=== PATIENT | female | born 1995 | race Asian ===

== ENCOUNTER 2021-05-03 14:38 | Inpatient (IN) ==
--- NOTE | 2021-05-03 15:09 | Emergency Department Note ---
Impression & Plan Mood disorder, Suicidal ideations ED Provider Note NAME: BRANDEN VOSS AGE: 26 SEX: F : 1995 ARRIVES VIA: [employer] INFORMANT: Patient ED PROVIDER(S): Diego Noble DO CHIEF COMPLAINT: Suicidal HPI: Patient is a 26-year-old female with a past medical history of depression who is referred over from [facility] for suicidal ideations with a plan to run in [place] traffic or to hang herself. She admits to hearing auditory hallucinations with negative statements and telling her to kill her self. She denies any visual hallucinations. No headache or change in vision. No chest pain or shortness of breath. No nausea, vomiting, or diarrhea. No other ex acerbating or remitting factors. She is agreeable to come in. She has been taking her medications which include Effexor and Abilify as well as trazodone. ROS: See above HPI for pertinent positives & negatives. A total of 10 systems reviewed and were otherwise negative. PAST MEDICAL HISTORY:See Below PAST SURGICAL HISTORY:See Below FAMILY HISTORY:See Below SOCIAL HISTORY:See Below HOME MEDICATIONS:See Below ALLERGIES:See Below VITALS:See Below PHYSICAL EXAMINATION: GENERAL: Sitting up in bed, alert, well appearing, well nourished, no distress, non-toxic EYE EXAM: normal conjunctiva. OROPHARYNX: no exudate, no erythema, lips, buccal mucosa, and tongue normal and mucous membranes are moist NECK: supple, no nuchal rigidity, no adenopathy, non-tender LUNGS: Clear to auscultation. Normal chest wall mechanics HEART: no murmurs, S1 normal and S2 normal ABDOMEN: abdomen soft, non-tender, normo-active bowel sounds, no masses, no rebound or guarding. UPPER EXTREMITIES: upper extremities are grossly normal. LOWER EXTREMITIES: No pitting edema. NEURO EXAM: Normal sensorium, cranial nerves II-XII grossly intact, normal speech, no gross weakness of arms, no gross weakness of legs. PSYCH: Admits to suicidal ideations with a plan and auditory hallucinations MEDICAL DECISION MAKING: Patient is a 26-year-old female who presents ER for suicidal ideations with Mult iple plans. She was referred [facility].Labs were obtained and showed no significant leukocytosis. There was mild anemia.BMP along with LFTs bilirubin and TSH was unremarkable. UA was clean. was negative. Tox was clean. Alcohol was negative. Patient was Covid negative. Patient was signed out Dr. Boyle after 302 was signed as patient did not want to come in. Awaiting placement. Observation Status: Indication:Suicidal ideations with a plan Patient with No pertinent family history, was seen first at 1448 hrs and was necessary in order to determine Medical stability and avoid unnecessary admission. Upon reevaluation, 5 hours of observation revealed that the patient should be Admitted to a psychiatric facility. Disposition date and time 1929 on 05/03/2021 patient was signed out Dr. Boyle at the change of shift awaiting placement. Triage Nursing notes reviewed. Limited review of prior medical records performed Vital Signs: reviewed and remarkable for no significant abnormalities Differential diagnosis: Mood disorder, infection, hypoglycemia, electrolyte abnormalities, cardiac sources, intracerebral event, toxicologic, trauma, neurologic, as well as other pathologies. ER treatment provided: See below Diagnostics interpreted by me: ECG: none Laboratory studies: As stated above and show below. Imaging studies: See below Consultation(s): none Procedures: none Critical Care: None Past Med/Surg History Social History Smoking Status: Never smoker Feels Safe at Home: Yes and No Allergies Allergies Allergy/AdvReac Type Severity Reaction Status Date / Time No Known Allergies Allergy Unverified 05/03/21 15:22 Home Meds Home Medications Medication Instructions Recorded Confirmed aripiprazole 10 mg tablet (Abilify) 10 mg PO DAILY 05/03/21 05/03/21 mexiletine 150 mg capsule 150 mg PO DAILY 05/03/21 05/03/21 propranolol 10 mg tablet 10 mg PO BID 05/03/21 05/03/21 venlafaxine 75 mg tablet 75 mg PO BID 05/03/21 05/03/21 Results & Data (ED) Vital Signs Vital Signs - 24 hr 05/03/21 14:51 Temperature 36.7 C Temperature Source Oral Pulse Rate 67 Respiratory Rate 20 Blood Pressure 120/77 Blood Pressure Mean 91 Blood Pressure Position Sitting Pulse Oximetry 100 Oxygen Delivery Method Room Air Sepsis Recent Fever Within 48 Hours No Sepsis New/Unexplained Change in Mental Status N/A Sepsis Action Taken by Nursing No Action Required Laboratory Data Result diagrams: 05/03/21 15:16 05/03/21 15:16 Lab Results 05/03/21 05/03/21 05/03/21 Range/Units 14:50 14:50 14:50 WBC (4.8-10.8) K/uL RBC (4.2-5.4) M/uL Hgb (12.0-16.0) g/dL Hct (37-47) % MCV (80-100) fL MCH (25-34) pg MCHC (32-36) g/dL RDW Std Deviation (36.4-46.3) fL RDW Coeff of Cruz (11.5-14.5) % Plt Count (130-400) K/uL MPV (7.4-10.4) fL Immature Gran % (Auto) % Neut % (Auto) % Lymph % (Auto) % [place] % (Auto) % Eos % (Auto) % Baso % (Auto) % Neut # (Auto) (1.4-6.5) K/uL Lymph # (Auto) (1.2-3.4) K/uL [place] # (Auto) (0.11-0.59) K/uL Eos # (Auto) (0-0.5) K/uL Baso # (Auto) (0-0.2) K/uL Immature Gran # (Auto) (0.00-0.02) K/uL Polychromasia Poikilocytosis Sodium (136-145) mmol/L Potassium (3.5-5.1) mmol/L Chloride (98-107) mmol/L Carbon Dioxide (21-32) mmol/L Anion Gap (3-11) BUN (7-18) mg/dl Creatinine (0.6-1.2) mg/dl Est Cr Clr Drug Dosing ml/min Est GFR ( Amer) ml/min Est GFR (Non-Af Amer) ml/min BUN/Creatinine Ratio (10-20) Glucose (70-99) mg/dl Calcium (8.5-10.1) mg/dl Total Bilirubin (0.2-1) mg/dl AST (15-37) U/L ALT (12-78) U/L Alkaline Phosphatase (45-117) U/L Total Protein (6.4-8.2) gm/dl Albumin (3.4-5.0) gm/dl Globulin (2.5-4.0) gm/dl Albumin/Globulin Ratio (0.9-2) TSH (0.300-4.500) uIu/ml Urine Color Yellow Urine Appearance Clear (Clear) Urine pH 6.0 (4.5-7.5) Ur Specific [place] 1.006 (1.000-1.030) Urine Protein Negative (Negative) Urine Glucose (UA) Negative (Negative) Urine Ketones Negative (Negative) Urine Blood Negative (Negative) Urine Nitrite Negative (Negative) Urine Bilirubin Negative (Negative) Urine Urobilinogen Negative (Negative) Ur Leukocyte Esterase Negative (Negative) POC Ur Test NEG (NEG) Salicylates (2.8-20) mg/dl Urine Opiates Screen Neg (Neg) Ur Methadone, Qual Neg (Neg) Acetaminophen (10-30) ug/ml Urine Barbiturates Neg (Neg) Ur Phencyclidine (PCP) Neg (Neg) U Amphetamin/Meth Scrn Neg (Neg) MDMA (Ecstasy) Screen Neg (Neg) U Benzodiazepines Scrn Neg (Neg) Ur Cocaine Metabolite Neg (Neg) U Marijuana (THC) Screen Neg (Neg) Ethyl Alcohol mg/dL (0-3) mg/dl COVID-19 Eval Order SARS-CoV-2 (PCR) (Negative) 05/03/21 05/03/21 05/03/21 Range/Units 15:09 15:09 15:16 WBC 6.27 (4.8-10.8) K/uL RBC 4.36 (4.2-5.4) M/uL Hgb 9.4 L (12.0-16.0) g/dL Hct 30.7 L (37-47) % MCV 70.4 L (80-100) fL MCH 21.6 L (25-34) pg MCHC 30.6 L (32-36) g/dL RDW Std Deviation 42.4 (36.4-46.3) fL RDW Coeff of Cruz 16.4 H (11.5-14.5) % Plt Count 373 (130-400) K/uL MPV 8.4 (7.4-10.4) fL Immature Gran % (Auto) 0.3 % Neut % (Auto) 54.0 % Lymph % (Auto) 38.1 % [place] % (Auto) 5.6 % Eos % (Auto) 1.8 % Baso % (Auto) 0.2 % Neut # (Auto) 3.39 (1.4-6.5) K/uL Lymph # (Auto) 2.39 (1.2-3.4) K/uL [place] # (Auto) 0.35 (0.11-0.59) K/uL Eos # (Auto) 0.11 (0-0.5) K/uL Baso # (Auto) 0.01 (0-0.2) K/uL Immature Gran # (Auto) 0.02 (0.00-0.02) K/uL Polychromasia 1+ Poikilocytosis Present Sodium (136-145) mmol/L Potassium (3.5-5.1) mmol/L Chloride (98-107) mmol/L Carbon Dioxide (21-32) mmol/L Anion Gap (3-11) BUN (7-18) mg/dl Creatinine (0.6-1.2) mg/dl Est Cr Clr Drug Dosing ml/min Est GFR ( Amer) ml/min Est GFR (Non-Af Amer) ml/min BUN/Creatinine Ratio (10-20) Glucose (70-99) mg/dl Calcium (8.5-10.1) mg/dl Total Bilirubin (0.2-1) mg/dl AST (15-37) U/L ALT (12-78) U/L Alkaline Phosphatase (45-117) U/L Total Protein (6.4-8.2) gm/dl Albumin (3.4-5.0) gm/dl Globulin (2.5-4.0) gm/dl Albumin/Globulin Ratio (0.9-2) TSH (0.300-4.500) uIu/ml Urine Color Urine Appearance (Clear) Urine pH (4.5-7.5) Ur Specific [place] (1.000-1.030) Urine Protein (Negative) Urine Glucose (UA) (Negative) Urine Ketones (Negative) Urine Blood (Negative) Urine Nitrite (Negative) Urine Bilirubin (Negative) Urine Urobilinogen (Negative) Ur Leukocyte Esterase (Negative) POC Ur Test (NEG) Salicylates (2.8-20) mg/dl Urine Opiates Screen (Neg) Ur Methadone, Qual (Neg) Acetaminophen (10-30) ug/ml Urine Barbiturates (Neg) Ur Phencyclidine (PCP) (Neg) U Amphetamin/Meth Scrn (Neg) MDMA (Ecstasy) Screen (Neg) U Benzodiazepines Scrn (Neg) Ur Cocaine Metabolite (Neg) U Marijuana (THC) Screen (Neg) Ethyl Alcohol mg/dL (0-3) mg/dl COVID-19 Eval Order Covid19 at [facility] SARS-CoV-2 (PCR) NEGATIVE (Negative) 05/03/21 05/03/21 05/03/21 Range/Units 15:16 15:16 15:16 WBC (4.8-10.8) K/uL RBC (4.2-5.4) M/uL Hgb (12.0-16.0) g/dL Hct (37-47) % MCV (80-100) fL MCH (25-34) pg MCHC (32-36) g/dL RDW Std Deviation (36.4-46.3) fL RDW Coeff of Cruz (11.5-14.5) % Plt Count (130-400) K/uL MPV (7.4-10.4) fL Immature Gran % (Auto) % Neut % (Auto) % Lymph % (Auto) % [place] % (Auto) % Eos % (Auto) % Baso % (Auto) % Neut # (Auto) (1.4-6.5) K/uL Lymph # (Auto) (1.2-3.4) K/uL [place] # (Auto) (0.11-0.59) K/uL Eos # (Auto) (0-0.5) K/uL Baso # (Auto) (0-0.2) K/uL Immature Gran # (Auto) (0.00-0.02) K/uL Polychromasia Poikilocytosis Sodium 136 (136-145) mmol/L Potassium 4.1 (3.5-5.1) mmol/L Chloride 106 (98-107) mmol/L Carbon Dioxide 23 (21-32) mmol/L Anion Gap 8.0 (3-11) BUN 7 (7-18) mg/dl Creatinine 0.66 (0.6-1.2) mg/dl Est Cr Clr Drug Dosing 121.8 ml/min Est GFR ( Amer) 143.3 ml/min Est GFR (Non-Af Amer) 123.6 ml/min BUN/Creatinine Ratio 10.8 (10-20) Glucose 104 H (70-99) mg/dl Calcium 9.4 (8.5-10.1) mg/dl Total Bilirubin 0.2 (0.2-1) mg/dl AST 8 L (15-37) U/L ALT 16 (12-78) U/L Alkaline Phosphatase 53 (45-117) U/L Total Protein 7.8 (6.4-8.2) gm/dl Albumin 3.7 (3.4-5.0) gm/dl Globulin 4.1 H (2.5-4.0) gm/dl Albumin/Globulin Ratio 0.9 (0.9-2) TSH 3.500 (0.300-4.500) uIu/ml Urine Color Urine Appearance (Clear) Urine pH (4.5-7.5) Ur Specific [place] (1.000-1.030) Urine Protein (Negative) Urine Glucose (UA) (Negative) Urine Ketones (Negative) Urine Blood (Negative) Urine Nitrite (Negative) Urine Bilirubin (Negative) Urine Urobilinogen (Negative) Ur Leukocyte Esterase (Negative) POC Ur Test (NEG) Salicylates < 1.7 L (2.8-20) mg/dl Urine Opiates Screen (Neg) Ur Methadone, Qual (Neg) Acetaminophen < 2 L (10-30) ug/ml Urine Barbiturates (Neg) Ur Phencyclidine (PCP) (Neg) U Amphetamin/Meth Scrn (Neg) MDMA (Ecstasy) Screen (Neg) U Benzodiazepines Scrn (Neg) Ur Cocaine Metabolite (Neg) U Marijuana (THC) Screen (Neg) Ethyl Alcohol mg/dL < 3.0 (0-3) mg/dl COVID-19 Eval Order SARS-CoV-2 (PCR) (Negative) Discharge Plan Visit Data Chief Complaint: Mental Health Evaluation Stated Complaint: mental health ED Provider: Diego Noble Discharge Problem: Mood disorder, Suicidal ideations Forms Stand Alone Forms: My [facility], Suicide Prevention Resources Prescriptions Prescriptions: No Action propranolol 10 mg Tablet 10 mg PO BID RF: 0 venlafaxine [Effexor] 75 mg Tablet 75 mg PO BID RF: 0 mexiletine 150 mg Capsule 150 mg PO DAILY RF: 0 aripiprazole [Abilify] 10 mg Tablet 10 mg PO DAILY RF: 0 Referrals [facility]errals: [facility] [Primary Care Provider] -
[2021-05-03 15:17] LABS: Appearance Urine Clear (Clear); Bilirubin Urine Negative (Negative); Blood Urine Negative (Negative); Color Urine Yellow; Glucose Urine UA Negative (Negative); Ketones Urine Negative (Negative); Leukocyte Esterase Urine Negative (Negative); Nitrite Urine Negative (Negative); Protein Urine Negative (Negative); Specific Gravity Urine 1.006 (1.000-1.030); Urobilinogen Urine Negative (Negative)
[2021-05-03 15:28] LABS: Hematocrit (blood only) 30.7 % (37-47); Hemoglobin 9.4 g/dL (12.0-16.0); Mean Corpuscular Hemoglobin 21.6 pg (25-34); Mean Corpuscular Hgb Conc 30.6 g/dL (32-36); Mean Corpuscular Volume 70.4 fL (80-100); Mean Platelet Volume 8.4 fL (7.4-10.4); Platelet Count 373 K/uL (130-400); RDW Coefficient of Variation 16.4 % (11.5-14.5); RDW Standard Deviation 42.4 fL (36.4-46.3); Red Blood Count 4.36 M/uL (4.2-5.4); White Blood Count 6.27 K/uL (4.8-10.8)
[2021-05-03 15:36] LABS: Amphetamines+Metham, Urine Neg (Neg); Barbiturates, Urine Neg (Neg); Benzodiazepine, Urine Neg (Neg); Cocaine, Urine Neg (Neg); MDMA (Ecstacy), Urine Neg (Neg); Methadone, Urine Neg (Neg); Opiate, Urine Neg (Neg); Phencyclidine, Urine Neg (Neg)
[2021-05-03 15:50] LABS: Albumin Level 3.7 gm/dl (3.4-5.0); BUN Creatinine Ratio 10.8 (10-20); Calcium 9.4 mg/dl (8.5-10.1); Creatinine Clr Calc Pharmacy 121.8 ml/min; Est GFR (African American) 143.3 ml/min; Est GFR (Non-African American) 123.6 ml/min; Potassium 4.1 mmol/L (3.5-5.1)
[2021-05-03 16:01] LABS: Albumin Globulin Ratio 0.9 (0.9-2); Bilirubin,Total 0.2 mg/dl (0.2-1); Globulin 4.1 gm/dl (2.5-4.0); Thyroid Stimulating Hormone 3.5 uIu/ml (0.300-4.500); Total Protein 7.8 gm/dl (6.4-8.2)
[2021-05-03 16:12] LABS: Acetaminophen < 2 ug/ml (10-30); Salicylate < 1.7 mg/dl (2.8-20)
[2021-05-03 16:26] LABS: Basophils # (auto) 0.01 K/uL (0-0.2); Basophils % (auto) 0.2 %; Eosinophils # (auto) 0.11 K/uL (0-0.5); Eosinophils % (auto) 1.8 %; Immature Granulocytes # (auto) 0.02 K/uL (0.00-0.02); Immature Granulocytes % (auto) 0.3 %; Lymphocytes # (auto) 2.39 K/uL (1.2-3.4); Lymphocytes % (auto) 38.1 %; Monocytes # (auto) 0.35 K/uL (0.11-0.59); Monocytes % (auto) 5.6 %; Neutrophils # (auto) 3.39 K/uL (1.4-6.5); Poikilocytosis Present; Polychromasia 1+
[2021-05-03] MEDS ORDERED: MAGNESIUM HYDROXIDE SUSP 30 ML UDC PO PRN (19:31)
[2021-05-03] MEDS ORDERED: SODIUM CHLORIDE 0.65% NA SOLN 45 ML (OCEAN) PRN (19:31)
[2021-05-03] MEDS ORDERED: hydrOXYzine HCl 25 MG TAB PO PRN ×2 (19:31)
[2021-05-03] MEDS ORDERED: BISMUTH SUBSALICYLATE LIQD 236 ML PO PRN (19:31)
[2021-05-03] MEDS ORDERED: ALUMINUM/MAGNESIUM SUSP 30 ML UDC PO PRN (19:31)
[2021-05-03] MEDS ORDERED: ACETAMINOPHEN 325 MG TAB PO PRN (19:31)
[2021-05-03] MEDS ORDERED: MELATONIN 3 MG TAB PO PRN (19:33)
--- NOTE | 2021-05-03 19:43 | Emergency Department Note ---
ED Visit Note The patient was taken in signout from Dr. Noble at the change of shift. Please see that note for details. The patient was pending psychiatric evaluation and bed placement. The patient is on a 302 warrant. During the signout process the patient was evaluated by [facility] and accepted The patient was admitted as an inpatient for further care. .
[2021-05-04] MEDS ORDERED: ARIPIprazole SOLN 10 MG/10 ML UDP PO SCH (09:00)
[2021-05-04] MEDS ORDERED: ARIPiprazole 10 MG TAB PO SCH (09:00)
[2021-05-04] MEDS: VENLAFAXINE HCL XR 150 MG CAPXR PO SCH (09:05)
--- NOTE | 2021-05-04 12:42 | History & Physical ---
Date of Service May 04, 2021 Impression / Recommendations Impression The patient is a 26 year old with a history of BPAD and self-harm who was admitted for depression, self-harm and SI with plans. The patient is deemed unstable and requires psychiatric hospitalization for diagnostic clarification, safety and stabilization, medication management and development of further coping skills. Diagnostically her description of prolonged periods of elevated mood and fzt-yh-pwllngxis behavior do seem convincing for possible BPAD type 1 or 2 though she has never required hospitalization for acute shabana and has been able to progress through college without disruption which would be unusual for acute shabana with only low-dose abilify for mood stabilization. There are seem to be some traits of BPD with chronic self-harm though she has never attempted suicide and reports fairly stable relationships. For now working diagnosis is BPAD type 2. Reviewed the risks, benefits, alternatives of her current medications and other treatment options. She would like to continue with Effexor 75 mg BID, will consider consolidating this to Effexor XR 150 mg qd. She would also like to continue with abilfy 10mg qd as this dose was just increased within the last week. Discussed risks including but not limited to TD, metabolic risks. Will get fasting labs tomorrow morning. AIMS score 0. She would like to start mirtazapine to help with sleep. (1) Mood disorder: (2) Suicidal ideation: (3) Self-harming behavior: 05/04/21: The patient was admitted to the [facility] ([facility]) on q15 min checks (behavioral with suicide precautions) for safety. The patient will participate in group, recreational, and milieu therapies and will be offered additional individual and family sessions as clinically appropriate. -Fasting labs in the morning. -EKG to evaluate QTc given history of cardiac arrhythmia. Continuing CA[employer] cardiac medications. -Continue CA[employer] abilify 10mg qd -Continue CA[employer] DRA[employer] P[employer]AYER Effexor 75 mg BID, consider switching to Effexor XR 150 mg qd -Start mirtazapine 15 mg qHS for insomnia/appetite/depression Inventory Assets Strengths: almost completed college, good relationship with brother Needs: increased coping skills, medication adjustment Risk Factors Assessment Male: No : No Do You Have Access To A Gun?: No Health Problems: No Mental Health Diagnoses: Yes Substance Use Disorders: No Previous Attempt: No Family History of Suicide: No Previous Psychiatric Hospitalization: No Hopelessness: No Smoker: No Protective Factors Assessment Employed: No Stable Relationships: Yes Supportive Family: Yes Good Rapport with Provider: Yes Psychiatric History Identifying Data BRANDEN VOSS (Amanda) is a 26-year-old woman and [employer] Senior from [facility] with a history of BPAD and was admitted on 05/03/21 19:31 on a 302 involuntary commitment for SI and self-harm. Chief Complaint "I still had suicidal thoughts and I was worried I wouldn't be able to stay safe if I did not get help". History of Present Illness Veronica presents for admission for worsening depression, self-harm via cutting and SI with plans of hanging herself, walking into traffic, jumping off a building, hanging herself or cutting herself enough to bleed out. She reports the precipitant for this was that she found out on Monday that she did poorly on a project for an important class and started to worry that she would fail the class and not be able to graduate. She then self-harmed via cutting which she states was not a suicide attempt but previously told one the [facility] therapists that it was a suicide attempt. She also experienced SI on Monday and then it persisted on Monday and she began to feel that she could not remain safe and may act of the SI with plans and thus sought help at [facility] and then presented to the ED. She notes that prior to Monday she had been experiencing elevated mood for the last 2-3 weeks with decreased sleep and increased energy. She is unsure if this period of elevated mood was responsible for her not being as organized or doing as well on her project. Currently she feels depressed with increased tearfulness, low mood, decreased sleep and decreased appetite. She denies SI currently and attributes the improvement to feeling supported in the hospital and having friends reach out to support her which reminded her of reasons to live. She describes a history of mood lability with periods of depression starting in 2019 and then over the last two years she's had 3-4 episodes of elevated mood with decreased need for sleep, high energy, increased activities, riskier out of character sexual activities, and odd behaviors of sneaking out at night which lasts about 2-3 weeks in duration. For this reason her outpatient psychiatrist in [facility] had started her on abilify and her new telepsychiatrist through an online [employer] program just increased her abilify dose last week. Psychiatric ROS notable for: hx restricting food intake in the past, long hx self-harm via cutting, hx hearing "internal voices" regarding intrusive thoughts of SI, worries about school but no other anxiety symptoms, no hx psychosis, no hx substance use. Past Psychiatric History Previous Psych History: dx with BPAD by two outpt psychiatrists Current Psychiatric Diagnosis: BPAD Outpatient Services: Stefany Vegas at [facility] for psychiatry and Roh[facility]ic[facility] for therapy Previous Psych Admissions: none Do You Have Access To A Gun?: No History of Previous Suicide Attempt: No Describe Attempts in the Past: Pt reports she stood on top of a building thinking about jumping Past Medication Trials: thinks she tried lithium in the past but stopped due to side effects (weight gain), also took some type of sleeping medication in [facility] that she reports is not available in the so she was switched to trazodone but had side effects of shakiness with this. Additional Notes: Abilify dose just increased from 5 to 10mg last week. Past Head Trauma/Neuro History History of Concussion/Seizure: No Allergies Allergy/AdvReac Type Severity Reaction Status Date / Time No Known Allergies Allergy Unverified 05/03/21 15:22 Home Medications Medication Instructions Recorded Confirmed Type aripiprazole 10 mg tablet (Abilify) 10 mg PO DAILY 05/03/21 05/03/21 History mexiletine 150 mg capsule 150 mg PO DAILY 05/03/21 05/03/21 History propranolol 10 mg tablet 10 mg PO BID 05/03/21 05/03/21 History venlafaxine 75 mg tablet 75 mg PO BID 05/03/21 05/03/21 History Family History Family History of: Depression (2 uncles) and Anxiety Alcohol History Hx of Alcohol Use Over the Past 12 Months: No AUDIT Total Score: 2 Smoking Use Have You Smoked or Used Tobacco Products in the Last 30 Days: No Smoking Status: Never smoker Substance History Hx of Prescription Med Misuse Over the Past 12 Months: No Hx of Over the Counter Med Misuse Over the Past 12 Months: No Hx of Inhalent Misuse Over the Past 12 Months: No Hx of Organic Substance Use Over the Past 12 Months: No Hx of Illegal Substances/Street Drug Use Over Past 12 Months: No Problems as a Result of Past Substance Use: None Identified Personal History Living Arrangements: Apartment Highest Grade Completed: High School Graduate Employment Status: Student Marital Status: Single Beliefs That Will Affect Care: None Current Legal Problems: No Hx Legal Problems: No Hx Traumatic Life Events: No Patient History Medical History (Updated 05/04/21 @ 12:30 by Angela Trinh MD) Arrhythmia states she has hx of PVCs and takes medication for this Self-harming behavior Social History Smoking Status: Never smoker Communication Ability: Effective 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 Beliefs That Will Affect Care: None Feels Safe at Home: Yes Assistive Devices: None Review of Systems Review of Systems: All systems reviewed & are unremarkable except as noted in HPI & below Physical Exam Psychiatric: Orientation: alert and oriented x 3 Apperance: appropriately dressed and appropriately groomed Eye Contact: + fair eye contact Motor Behavior: steady gait and station and no abnormal motor movements Speech: normal rate/rhythm/volume of speech Affect: + constricted affect Mood: + depressed mood Thought Process: linear/logical thought process Thought Content: reality based without delusions Suicidal Thoughts: denies suicidal thoughts Homicidal Thoughts: denies homicidal thoughts Hallucinations: no auditory hallucinations and no visual hallucinations Cognition: recent memory grossly intact, remote memory grossly intact, attention grossly intact and language grossly intact Estimated Intelligence: consistent with education level Insight: + fair insight Judgement: + fair judgement Vital Signs (Past 24 Hours): Last Vital Signs Temp 36.5 C 05/04/21 06:41 Pulse 41 L 05/04/21 06:42 Resp 16 05/04/21 06:41 BP 110/70 05/04/21 06:42 Pulse Ox 100 05/03/21 14:51 Exam Statement: A physical exam was performed in the ED by Dr. Noble for the purposes of medical clearance. I accept that physical as correct and adequate for the purposes of the inpatient physical exam. Results & Data ([facility]) Laboratory Results Laboratory Results - last 24 hr 05/03/21 05/03/21 05/03/21 14:50 14:50 14:50 WBC RBC Hgb Hct MCV MCH MCHC RDW Std Deviation RDW Coeff of Cruz Plt Count MPV Immature Gran % (Auto) Neut % (Auto) Lymph % (Auto) [place] % (Auto) Eos % (Auto) Baso % (Auto) Neut # (Auto) Lymph # (Auto) [place] # (Auto) Eos # (Auto) Baso # (Auto) Immature Gran # (Auto) Polychromasia Poikilocytosis Sodium Potassium Chloride Carbon Dioxide Anion Gap BUN Creatinine Est Cr Clr Drug Dosing Est GFR ( Amer) Est GFR (Non-Af Amer) BUN/Creatinine Ratio Glucose Calcium Total Bilirubin AST ALT Alkaline Phosphatase Total Protein Albumin Globulin Albumin/Globulin Ratio TSH Urine Color Yellow Urine Appearance Clear Urine pH 6.0 Ur Specific Spring 1.006 Urine Protein Negative Urine Glucose (UA) Negative Urine Ketones Negative Urine Blood Negative Urine Nitrite Negative Urine Bilirubin Negative Urine Urobilinogen Negative Ur Leukocyte Esterase Negative POC Ur Test NEG Salicylates Urine Opiates Screen Neg Ur Methadone, Qual Neg Acetaminophen Urine Barbiturates Neg Ur Phencyclidine (PCP) Neg U Amphetamin/Meth Scrn Neg MDMA (Ecstasy) Screen Neg U Benzodiazepines Scrn Neg Ur Cocaine Metabolite Neg U Marijuana (THC) Screen Neg Ethyl Alcohol mg/dL COVID-19 Eval Order SARS-CoV-2 (PCR) 05/03/21 05/03/21 05/03/21 15:09 15:09 15:16 WBC 6.27 RBC 4.36 Hgb 9.4 L Hct 30.7 L MCV 70.4 L MCH 21.6 L MCHC 30.6 L RDW Std Deviation 42.4 RDW Coeff of Cruz 16.4 H Plt Count 373 MPV 8.4 Immature Gran % (Auto) 0.3 Neut % (Auto) 54.0 Lymph % (Auto) 38.1 [place] % (Auto) 5.6 Eos % (Auto) 1.8 Baso % (Auto) 0.2 Neut # (Auto) 3.39 Lymph # (Auto) 2.39 [place] # (Auto) 0.35 Eos # (Auto) 0.11 Baso # (Auto) 0.01 Immature Gran # (Auto) 0.02 Polychromasia 1+ Poikilocytosis Present Sodium Potassium Chloride Carbon Dioxide Anion Gap BUN Creatinine Est Cr Clr Drug Dosing Est GFR ( Amer) Est GFR (Non-Af Amer) BUN/Creatinine Ratio Glucose Calcium Total Bilirubin AST ALT Alkaline Phosphatase Total Protein Albumin Globulin Albumin/Globulin Ratio TSH Urine Color Urine Appearance Urine pH Ur Specific Spring Urine Protein Urine Glucose (UA) Urine Ketones Urine Blood Urine Nitrite Urine Bilirubin Urine Urobilinogen Ur Leukocyte Esterase POC Ur Test Salicylates Urine Opiates Screen Ur Methadone, Qual Acetaminophen Urine Barbiturates Ur Phencyclidine (PCP) U Amphetamin/Meth Scrn MDMA (Ecstasy) Screen U Benzodiazepines Scrn Ur Cocaine Metabolite U Marijuana (THC) Screen Ethyl Alcohol mg/dL COVID-19 Eval Order Covid19 at [facility] SARS-CoV-2 (PCR) NEGATIVE 05/03/21 05/03/21 05/03/21 15:16 15:16 15:16 WBC RBC Hgb Hct MCV MCH MCHC RDW Std Deviation RDW Coeff of Cruz Plt Count MPV Immature Gran % (Auto) Neut % (Auto) Lymph % (Auto) [place] % (Auto) Eos % (Auto) Baso % (Auto) Neut # (Auto) Lymph # (Auto) [place] # (Auto) Eos # (Auto) Baso # (Auto) Immature Gran # (Auto) Polychromasia Poikilocytosis Sodium 136 Potassium 4.1 Chloride 106 Carbon Dioxide 23 Anion Gap 8.0 BUN 7 Creatinine 0.66 Est Cr Clr Drug Dosing 121.8 Est GFR ( Amer) 143.3 Est GFR (Non-Af Amer) 123.6 BUN/Creatinine Ratio 10.8 Glucose 104 H Calcium 9.4 Total Bilirubin 0.2 AST 8 L ALT 16 Alkaline Phosphatase 53 Total Protein 7.8 Albumin 3.7 Globulin 4.1 H Albumin/Globulin Ratio 0.9 TSH 3.500 Urine Color Urine Appearance Urine pH Ur Specific Spring Urine Protein Urine Glucose (UA) Urine Ketones Urine Blood Urine Nitrite Urine Bilirubin Urine Urobilinogen Ur Leukocyte Esterase POC Ur Test Salicylates < 1.7 L Urine Opiates Screen Ur Methadone, Qual Acetaminophen < 2 L Urine Barbiturates Ur Phencyclidine (PCP) U Amphetamin/Meth Scrn MDMA (Ecstasy) Screen U Benzodiazepines Scrn Ur Cocaine Metabolite U Marijuana (THC) Screen Ethyl Alcohol mg/dL < 3.0 COVID-19 Eval Order SARS-CoV-2 (PCR) Current Inpatient Medications Current Inpatient Medications: Current Inpatient Medications Acetaminophen (Acetaminophen 325 Mg Tab) 650 mg PO Q4H PRN PRN Reason: Headache or Minor Fever Stop: 06/02/21 19:30 Al Hydrox/Mg Hydrox/Simethicone (Aluminum/Magnesium Susp 30 Ml Udc) 30 ml PO Q4H PRN PRN Reason: GI Upset Stop: 06/02/21 19:30 Aripiprazole (Aripiprazole 10 Mg Tab) 10 mg PO QAM MONICA Stop: 06/03/21 08:59 Last Admin: 05/04/21 09:05 Dose: 10 mg Documented by: Bismuth Subsalicylate (Bismuth Subsalicylate Liqd 236 Ml) 15 ml PO PRN PRN PRN Reason: Loose Stool Stop: 06/02/21 19:30 Hydroxyzine HCl (Hydroxyzine Hcl 25 Mg Tab) 50 mg PO HSZ PRN PRN Reason: Insomnia Stop: 06/02/21 19:30 Hydroxyzine HCl (Hydroxyzine Hcl 25 Mg Tab) 25 mg PO Q4H PRN PRN Reason: Anxiety Stop: 06/02/21 19:30 Magnesium Hydroxide (Magnesium Hydroxide Susp 30 Ml Udc) 30 ml PO DAILY PRN PRN Reason: Constipation Stop: 06/02/21 19:30 Melatonin (Melatonin 3 Mg Tab) 3 mg PO HS PRN PRN Reason: Sleep Stop: 06/02/21 19:32 Last Admin: 05/03/21 22:13 Dose: 3 mg Documented by: Sodium Chloride (Sodium Chloride 0.65% Na Soln 45 Ml (Hissop)) 1 - 2 sprays NA PRN PRN PRN Reason: Nasal Dryness/Congestion Stop: 06/02/21 19:30 Venlafaxine HCl (Venlafaxine Hcl Xr 150 Mg Capxr) 150 mg PO QAM MONICA Stop: 06/03/21 08:59 Last Admin: 05/04/21 09:05 Dose: 150 mg Documented by:
--- NOTE | 2021-05-04 16:43 | Electrocardiogram Report ---
Test Reason : Blood Pressure : / mmHG Vent. Rate : 083 BPM Atrial Rate : 083 BPM P-R Int : 128 ms QRS Dur : 090 ms QT Int : 376 ms P-R-T Axes : 041 065 047 degrees QTc Int : 441 ms Sinus rhythm with frequent Premature ventricular complexes Otherwise normal ECG No previous ECGs available Confirmed by Bony Hull ([id number]) on 05/04/2021 4:42:42 PM Referred By: [facility] Confirmed By:Niranjan Hull
[2021-05-04] MEDS: MIRTAZAPINE TAB 15 MG TAB PO SCH (21:11)
[2021-05-04] MEDS: PROPRANOLOL HCL 10 MG TAB PO SCH (21:11)
[2021-05-05] MEDS: PROPRANOLOL HCL 10 MG TAB PO SCH ×2 (08:32→20:28)
[2021-05-05] MEDS: MEXILETINE HCL 150 MG CAPSULE PO SCH (08:32)
[2021-05-05] MEDS: ARIPiprazole 10 MG TAB PO SCH (08:32)
[2021-05-05] MEDS: VENLAFAXINE HCL XR 150 MG CAPXR PO SCH (08:32)
[2021-05-05 09:14] LABS: Glucose Fasting 88 mg/dl (70-99)
[2021-05-05 09:22] LABS: Chol HDL Ratio 3; Cholesterol 177 mg/dl (0-200); HDL Cholesterol 67 mg/dl; LDL Cholesterol Calculated 98 mg/dl; Triglycerides 58 mg/dl (0-150); VLDL Cholesterol 12 mg/dl
--- NOTE | 2021-05-05 13:40 | Psychiatric Progress Note ---
Date of Service May 05, 2021 Impression / Recommendations Impression The patient is a 26 year old with a history of BPAD and self-harm who was admitted for depression, self-harm and SI with plans. The patient is deemed unstable and requires psychiatric hospitalization for diagnostic clarification, safety and stabilization, medication management and development of further coping skills. Diagnostically her description of prolonged periods of elevated mood and jum-yw-bqwxgrdtu behavior do seem convincing for possible BPAD type 1 or 2 though she has never required hospitalization for acute shabana and has been able to progress through college without disruption which would be unusual for acute shabana with only low-dose abilify for mood stabilization. There seem to be some traits of BPD with chronic self-harm though she has never attempted suicide and reports fairly stable relationships. For now working diagnosis is BPAD type 2. Tolerating mirtazapine well and finds it helpful. Pharmacy does not carry Effexor XR 225 mg but they can provide Effexor XR 150 mg and 75 mg tablet for total daily dose 225 mg qd which she would like to do. Discussed risks, benefits and alternatives and she consented to Effexor 225 mg dose. (1) Mood disorder: (2) Suicidal ideation: (3) Self-harming behavior: 05/05/21: EKG and QTc normal and reassuring. Continue with mirtazapine 15 mg qHS which she found very helpful for sleep. Increase Effexor XR from 150 mg qd to 225 mg qd (as one 150mg tablet and one 75 mg tablet) to address depression. Continue abilify 10 mg qd, fasting lipid panel and glucose all normal. 05/04/21: The patient was admitted to the [facility] ([facility] mental health unit) on q15 min checks (behavioral with suicide precautions) for safety. The patient will participate in group, recreational, and milieu therapies and will be offered additional individual and family sessions as clinically appropriate. -Fasting labs in the morning. -EKG to evaluate QTc given history of cardiac arrhythmia. Continuing EDGERMAN cardiac medications. -Continue EDGERMAN abilify 10mg qd -Continue EDGERMAN Effexor 75 mg BID, consider switching to Effexor XR 150 mg qd -Start mirtazapine 15 mg qHS for insomnia/appetite/depression Inventory Assets Strengths: almost completed college, good relationship with brother Needs: increased coping skills, medication adjustment Risk Factors Assessment Male: No : No Do You Have Access To A Gun?: No Health Problems: No Mental Health Diagnoses: Yes Substance Use Disorders: No Previous Attempt: No Family History of Suicide: No Previous Psychiatric Hospitalization: No Hopelessness: No Smoker: No Protective Factors Assessment Employed: No Stable Relationships: Yes Supportive Family: Yes Good Rapport with Provider: Yes Interval History Identifying Information BRANDEN VOSS (Amanda) is a 26-year-old woman and [employer] Senior from [facility] with a history of BPAD and was admitted on 05/03/21 19:31 on a 302 involuntary commitment (expires 05/08) for SI and self-harm. Chief Complaint "I'm feeling better, I finally slept well for the first time in weeks". Review of Systems Sleep Information Total Hours of Sleep: 7.75 Sleep Comments: pt on q-15 minute checks Meal Information Percent Meal Consumed - Breakfast: 75 Percent Meal Consumed - Lunch: 0 Percent Meal Consumed - Dinner: 50 Nutrition Comment: refused - per meal record Subjective Subjective Patient was seen & assessed and interval progress reviewed with treatment team nursing and social work. She had reported feeling annoyed last night which she attributed to ongoing side effects since trazodone had been discontinued as an outpatient. However this morning she reports feeling "better" which she attributes to getting good sleep with the mirtazapine. She denies any medication side effects. Reviewed more history with her including self-harm pattern of cutting starting at age 12 and then over the last three years limited self-harm only a few times per year and mostly scratching as occurred the day prior to her admission. No current self-harm urges and no current SI. Discussed past medications which she was able to retrieve information about yesterday from her phone/personal records. She previously took clonzapeam at one point for sleep and then estazolam 4 mg qhs and then trazodone 50mg and then 100mg without good effect. She had been on Effexor XR 225 mg while in [facility] but this was reduced to 150 mg qd by her [facility] provider as the [facility] pharmacy didn't carry the 225 mg formulation per her report. Physical Exam Psychiatric Orientation: alert and oriented x 3 Apperance: appropriately dressed and appropriately groomed Eye Contact: + fair eye contact Motor Behavior: steady gait and station and no abnormal motor movements Speech: normal rate/rhythm/volume of speech Affect: + constricted affect Mood: + depressed mood Thought Process: linear/logical thought process Thought Content: reality based without delusions Suicidal Thoughts: denies suicidal thoughts Homicidal Thoughts: denies homicidal thoughts Hallucinations: no auditory hallucinations and no visual hallucinations Cognition: recent memory grossly intact, remote memory grossly intact, attention grossly intact and language grossly intact Estimated Intelligence: consistent with education level Insight: + fair insight Judgement: + fair judgement Vital Signs (Past 24 Hours) Last Vital Signs Temp 36.9 C 05/05/21 06:44 Pulse 70 05/05/21 06:44 Resp 16 05/05/21 06:44 BP 110/72 05/05/21 06:44 Pulse Ox 100 05/03/21 14:51 Results & Data ([facility]) Laboratory Results Laboratory Results - last 24 hr 05/05/21 08:17 Fasting Glucose 88 Triglycerides 58 Cholesterol 177 LDL Cholesterol, Calc 98 VLDL Cholesterol, Calc 12 HDL Cholesterol 67 Cholesterol/HDL Ratio 3 Diagnostic Findings EKG 05/04: "Sinus rhythm with frequent Premature ventricular complexes Otherwise normal ECG" QTc 441 ms Current Inpatient Medications Current Inpatient Medications: Current Inpatient Medications Acetaminophen (Acetaminophen 325 Mg Tab) 650 mg PO Q4H PRN PRN Reason: Headache or Minor Fever Stop: 06/02/21 19:30 Al Hydrox/Mg Hydrox/Simethicone (Aluminum/Magnesium Susp 30 Ml Udc) 30 ml PO Q4H PRN PRN Reason: GI Upset Stop: 06/02/21 19:30 Aripiprazole (Aripiprazole 10 Mg Tab) 10 mg PO DAILY MONICA Stop: 06/04/21 08:59 Last Admin: 05/05/21 08:32 Dose: 10 mg Documented by: Bismuth Subsalicylate (Bismuth Subsalicylate Liqd 236 Ml) 15 ml PO PRN PRN PRN Reason: Loose Stool Stop: 06/02/21 19:30 Hydroxyzine HCl (Hydroxyzine Hcl 25 Mg Tab) 50 mg PO HSZ PRN PRN Reason: Insomnia Stop: 06/02/21 19:30 Hydroxyzine HCl (Hydroxyzine Hcl 25 Mg Tab) 25 mg PO Q4H PRN PRN Reason: Anxiety Stop: 06/02/21 19:30 Magnesium Hydroxide (Magnesium Hydroxide Susp 30 Ml Udc) 30 ml PO DAILY PRN PRN Reason: Constipation Stop: 06/02/21 19:30 Melatonin (Melatonin 3 Mg Tab) 3 mg PO HS PRN PRN Reason: Sleep Stop: 06/02/21 19:32 Last Admin: 05/03/21 22:13 Dose: 3 mg Documented by: Mexiletine HCl (Mexiletine Hcl 150 Mg Capsule) 150 mg PO DAILY MONICA Stop: 06/04/21 08:59 Last Admin: 05/05/21 08:32 Dose: 150 mg Documented by: Mirtazapine (Mirtazapine Tab 15 Mg Tab) 15 mg PO HS MONICA Stop: 06/03/21 21:59 Last Admin: 05/04/21 21:11 Dose: 15 mg Documented by: Propranolol HCl (Propranolol Hcl 10 Mg Tab) 10 mg PO BID MONICA Stop: 06/03/21 20:59 Last Admin: 05/05/21 08:32 Dose: 10 mg Documented by: Sodium Chloride (Sodium Chloride 0.65% Na Soln 45 Ml (Haskell)) 1 - 2 sprays NA PRN PRN PRN Reason: Nasal Dryness/Congestion Stop: 06/02/21 19:30 Venlafaxine HCl (Venlafaxine Hcl Xr 150 Mg Capxr) 150 mg PO QAM MONICA Stop: 06/03/21 08:59 Last Admin: 05/05/21 08:32 Dose: 150 mg Documented by: Mental Health & Subst Abuse Tx Psychiatrist Name of Psychiatrist: Eric Vegas Psychiatrist's /Portal Date of Appointment with Psychiatrist: 05/13/21 Time of Appointment with Psychiatrist: 10 a.m. Psychiatric Appointment Comment: Portal Therapist Name of Therapist: Eric Hickey Therapist's /Portal Therapy Appointment Comment: Portal Post Discharge Appointments Primary Care Physician Name Of Family Doctor: [facility] Primary Care Provider Appointment Comment: [facility] Contact Information Discharge Discharge Address: [address] [place] [address]
[2021-05-05] MEDS: MIRTAZAPINE TAB 15 MG TAB PO SCH (20:28)
[2021-05-06] MEDS: ARIPiprazole 10 MG TAB PO SCH (08:23)
[2021-05-06] MEDS: MEXILETINE HCL 150 MG CAPSULE PO SCH (08:23)
[2021-05-06] MEDS: PROPRANOLOL HCL 10 MG TAB PO SCH ×2 (08:23→21:20)
[2021-05-06] MEDS: VENLAFAXINE HCL XR 150 MG CAPXR PO SCH (08:23)
[2021-05-06] MEDS: VENLAFAXINE HCL XR 75 MG CAPXR PO SCH (09:00)
--- NOTE | 2021-05-06 18:51 | Psychiatric Progress Note ---
Date of Service May 06, 2021 Impression / Recommendations Impression The patient is a 26 year old with a history of BPAD and self-harm who was admitted for depression, self-harm and SI with plans. The patient is deemed unstable and requires psychiatric hospitalization for diagnostic clarification, safety and stabilization, medication management and development of further coping skills. Diagnostically her description of prolonged periods of elevated mood and [id number] behavior do seem convincing for possible BPAD type 1 or 2 though she has never required hospitalization for acute shabana and has been able to progress through college without disruption which would be unusual for acute shabana with only low-dose abilify for mood stabilization. There seem to be some traits of BPD with chronic self-harm though she has never attempted suicide and reports fairly stable relationships. For now working diagnosis is BPAD type 2. Showing resting bilateral tremor today. Could be due to effexor increase though she was on the dose previously without issue. Suspect muscle side effects, possible TD, from abilify. We discussed my concern that tremor will cause interference with her school work when she returns. She agrees with this and consents to decrease the abilify dose, understands potential risk for emergence of hypomania symptoms though unlikely. Discussed option to use atarax and/or cogentin if desired to see if this is EPS-related. (1) Mood disorder: (2) Suicidal ideation: (3) Self-harming behavior: 05/06/21: Continue mirtazapine and Effexor XR. Increased shakiness, tremor today could be due to effexor increase vs abilify. She consents to reducing abilify dose to 5 mg qd to see if this helps reduce symptoms. Cosnider adding cogentin prn if tremor persists. 05/05/21: EKG and QTc normal and reassuring. Continue with mirtazapine 15 mg qHS which she found very helpful for sleep. Increase Effexor XR from 150 mg qd to 225 mg qd (as one 150mg tablet and one 75 mg tablet) to address depression. Continue abilify 10 mg qd, fasting lipid panel and glucose all normal. 05/04/21: The patient was admitted to the [facility] ([facility]) on q15 min checks (behavioral with suicide precautions) for safety. The patient will participate in group, recreational, and milieu therapies and will be offered additional individual and family sessions as clinically appropriate. -Fasting labs in the morning. -EKG to evaluate QTc given history of cardiac arrhythmia. Continuing [facility] cardiac medications. -Continue [facility] abilify 10mg qd -Continue [facility] Effexor 75 mg BID, consider switching to Effexor XR 150 mg qd -Start mirtazapine 15 mg qHS for insomnia/appetite/depression Inventory Assets Strengths: almost completed college, good relationship with brother Needs: increased coping skills, medication adjustment Risk Factors Assessment Male: No : No Do You Have Access To A Gun?: No Health Problems: No Mental Health Diagnoses: Yes Substance Use Disorders: No Previous Attempt: No Family History of Suicide: No Previous Psychiatric Hospitalization: No Hopelessness: No Smoker: No Protective Factors Assessment Employed: No Stable Relationships: Yes Supportive Family: Yes Good Rapport with Provider: Yes Interval History Identifying Information BRANDEN "Dwight VOSS is a 26-year-old woman and [employer] Senior from [facility] with a history of BPAD and was admitted on 05/03/21 19:31 on a 302 involuntary commitment (expires 05/08) for SI and self-harm. Chief Complaint "I'm good". Review of Systems Sleep Information Total Hours of Sleep: 7.5 Sleep Comments: pt on q-15 minute checks Meal Information Percent Meal Consumed - Breakfast: 75 Percent Meal Consumed - Lunch: 90 Percent Meal Consumed - Dinner: 80 Nutrition Comment: refused - per meal record Subjective Subjective Patient was seen & assessed and interval progress reviewed with treatment team nursing and social work. Today she reports "good" mood and no side effects from the medication changes. She is however, having some muscle shakiness today including visible resting tremor. She feels this occurs anytime she has medication changes. She does not feel it is due to the higher dose of effexor. Discussed potential cause from abilify but she's unsure of this since she's been taking it for a long time. Physical Exam Psychiatric Orientation: alert and oriented x 3 Apperance: appropriately dressed and appropriately groomed Eye Contact: + fair eye contact Motor Behavior: steady gait and station, no abnormal motor movements and + tremor Speech: normal rate/rhythm/volume of speech Affect: + constricted affect Mood: + depressed mood Thought Process: linear/logical thought process Thought Content: reality based without delusions Suicidal Thoughts: denies suicidal thoughts Homicidal Thoughts: denies homicidal thoughts Hallucinations: no auditory hallucinations and no visual hallucinations Cognition: recent memory grossly intact, remote memory grossly intact, attention grossly intact and language grossly intact Estimated Intelligence: consistent with education level Insight: + fair insight Judgement: + fair judgement Vital Signs (Past 24 Hours) Last Vital Signs Temp 36.4 C L 05/06/21 06:47 Pulse 55 L 05/06/21 06:49 Resp 16 05/06/21 06:47 BP 97/63 L 05/06/21 06:49 Pulse Ox 99 05/06/21 06:47 Results & Data ([facility]) Current Inpatient Medications Current Inpatient Medications: Current Inpatient Medications Acetaminophen (Acetaminophen 325 Mg Tab) 650 mg PO Q4H PRN PRN Reason: Headache or Minor Fever Stop: 06/02/21 19:30 Al Hydrox/Mg Hydrox/Simethicone (Aluminum/Magnesium Susp 30 Ml Udc) 30 ml PO Q4H PRN PRN Reason: GI Upset Stop: 06/02/21 19:30 Aripiprazole (Aripiprazole 10 Mg Tab) 10 mg PO DAILY MONICA Stop: 06/04/21 08:59 Last Admin: 05/06/21 08:23 Dose: 10 mg Documented by: Bismuth Subsalicylate (Bismuth Subsalicylate Liqd 236 Ml) 15 ml PO PRN PRN PRN Reason: Loose Stool Stop: 06/02/21 19:30 Hydroxyzine HCl (Hydroxyzine Hcl 25 Mg Tab) 50 mg PO HSZ PRN PRN Reason: Insomnia Stop: 06/02/21 19:30 Hydroxyzine HCl (Hydroxyzine Hcl 25 Mg Tab) 25 mg PO Q4H PRN PRN Reason: Anxiety Stop: 06/02/21 19:30 Magnesium Hydroxide (Magnesium Hydroxide Susp 30 Ml Udc) 30 ml PO DAILY PRN PRN Reason: Constipation Stop: 06/02/21 19:30 Melatonin (Melatonin 3 Mg Tab) 3 mg PO HS PRN PRN Reason: Sleep Stop: 06/02/21 19:32 Last Admin: 05/03/21 22:13 Dose: 3 mg Documented by: Mexiletine HCl (Mexiletine Hcl 150 Mg Capsule) 150 mg PO DAILY MONICA Stop: 06/04/21 08:59 Last Admin: 05/06/21 08:23 Dose: 150 mg Documented by: Mirtazapine (Mirtazapine Tab 15 Mg Tab) 15 mg PO HS MONICA Stop: 06/03/21 21:59 Last Admin: 05/05/21 20:28 Dose: 15 mg Documented by: Propranolol HCl (Propranolol Hcl 10 Mg Tab) 10 mg PO BID MONICA Stop: 06/03/21 20:59 Last Admin: 05/06/21 08:23 Dose: 10 mg Documented by: Sodium Chloride (Sodium Chloride 0.65% Na Soln 45 Ml ([place])) 1 - 2 sprays NA PRN PRN PRN Reason: Nasal Dryness/Congestion Stop: 06/02/21 19:30 Venlafaxine HCl (Venlafaxine Hcl Xr 150 Mg Capxr) 150 mg PO QAM MONICA Stop: 06/03/21 08:59 Last Admin: 05/06/21 08:23 Dose: 150 mg Documented by: Venlafaxine HCl (Venlafaxine Hcl Xr 75 Mg Capxr) 75 mg PO QAM MONICA Stop: 06/05/21 08:59 Last Admin: 05/06/21 09:00 Dose: 75 mg Documented by: Mental Health & Subst Abuse Tx Psychiatrist Name of Psychiatrist: [facility]al Date of Appointment with Psychiatrist: 05/13/21 Time of Appointment with Psychiatrist: 10 a.m. Psychiatric Appointment Comment: Portal Therapist Name of Therapist: Eric [facility]Portal Therapy Appointment Comment: Portal Post Discharge Appointments Primary Care Physician Name Of Family Doctor: [facility] Primary Care Provider Appointment Comment: [facility] Contact Information Discharge Discharge Address: [address] [place] [address]
[2021-05-06] MEDS: MIRTAZAPINE TAB 15 MG TAB PO SCH (21:20)
[2021-05-07] MEDS ORDERED: ARIPiprazole 5 MG TAB PO SCH (09:00)
[2021-05-07] MEDS: VENLAFAXINE HCL XR 150 MG CAPXR PO SCH (09:28)
[2021-05-07] MEDS: VENLAFAXINE HCL XR 75 MG CAPXR PO SCH (09:28)
[2021-05-07] MEDS: MEXILETINE HCL 150 MG CAPSULE PO SCH (09:28)
[2021-05-07] MEDS: PROPRANOLOL HCL 10 MG TAB PO SCH (09:28)
--- NOTE | 2021-05-07 13:17 | Discharge Summary ---
Date of Service May 07, 2021 History of Present Illness Veronica presents for admission for worsening depression, self-harm via cutting and SI with plans of hanging herself, walking into traffic, jumping off a building, hanging herself or cutting herself enough to bleed out. She reports the precipitant for this was that she found out on Monday that she did poorly on a project for an important class and started to worry that she would fail the class and not be able to graduate. She then self-harmed via cutting which she states was not a suicide attempt but previously told one the [facility] therapists that it was a suicide attempt. She also experienced SI on Monday and then it persisted on Monday and she began to feel that she could not remain safe and may act of the SI with plans and thus sought help at [facility] and then presented to the ED. She notes that prior to Monday she had been experiencing elevated mood for the last 2-3 weeks with decreased sleep and increased energy. She is unsure if this period of elevated mood was responsible for her not being as organized or doing as well on her project. Currently she feels depressed with increased tearfulness, low mood, decreased sleep and decreased appetite. She denies SI currently and attributes the improvement to feeling supported in the hospital and having friends reach out to support her which reminded her of reasons to live. She describes a history of mood lability with periods of depression starting in 2018 and then over the last two years she's had 3-4 episodes of elevated mood with decreased need for sleep, high energy, increased activities, riskier out of character sexual activities, and odd behaviors of sneaking out at night which lasts about 2-3 weeks in duration. For this reason her outpatient psychiatrist in [facility] had started her on abilify and her new telepsychiatrist through an online [employer] program just increased her abilify dose last week. Psychiatric ROS notable for: hx restricting food intake in the past, long hx self-harm via cutting, hx hearing "internal voices" regarding intrusive thoughts of SI, worries about school but no other anxiety symptoms, no hx psychosis, no hx substance use. Physical Exam Vital Signs (Past 24 Hours) Last Vital Signs Temp 36.7 C 05/07/21 06:00 Pulse 92 H 05/07/21 06:34 Resp 14 05/07/21 06:00 BP 100/69 05/07/21 06:34 Pulse Ox 99 05/06/21 06:47 See admission H&P and DOD summary. Principal Diagnosis Major Depressive Disorder Psychiatric Data See daily stay summary. In short, patient was engaged with the social/therapeutic milieu of the unit, safety was maintained and the patient was cooperative with care. Medication changes included initiation of mirtazapine to help with depression and insomnia, increase of Effexor XR from 150 mg to 225 mg to address depression and reduction of abilify from 10 to 5 mg given that history of more suggestive of BPAD type 2 vs MDD and concern it was causing akathisia. Discussed that Effexor XR can also cause symptoms of tremor or shakiness but she had been on the higher dose previously without problems so this was felt to be less likely especially since akathisia symptoms were occuring prior to admission on Effexor XR 150mg dose. She tolerated all medication changes well. Should tremor persist reviewed with her that recommendation would be to discuss with her outpatient psychiatrist whom she will see next week. Would considering reducing the Effexor XR dose versus discontinuation of abilify if this persists. Baseline labs of fasting glucose, HbA1c, fasting lipid profile, and weight were preformed and WNL. Recommend repeat weight in one month. Recommend repeat fasting glucose, HbA1c and fasting lipid profile every 12 weeks and then annually. If symptoms arise recommend checking BP, EKG, prolactin level as clinically indicated or relevant. A family session was held and safety plan was completed prior to discharge. She vocalized improvement in mood, no longer experiencing SI and future-orientation about getting back to school and looking forward to spending the winter break with her brother in [place]. She has follow-up appointments with her psychiatrist and therapist scheduled. Day of Discharge Assessment Today the patient voices readiness for discharge. They note improvement in mood and anxiety. They deny thoughts of harm to self or others. Thoughts remain organized and they are clinically improved from admission. There is no evidence of psychosis. They improved in the hospital with support and medication adjustments. They agree to take medications as prescribed and keep follow-up appointments. At the time of the discharge they are deemed to be stable and appropriate for outpatient level of care. They are not deemed to be at imminent risk of harm to self or others. They are aware of emergency and crisis services. Knows to call 911 or go to nearest emergency care center if in a crisis which cannot be handled as an outpatient. Transition of Care Transition Of Care Record: was reviewed with the patient Advance Directives Advance Directives Information Provided: Yes Advance Directives: No Mental Health Advance Directive: No Advance Directives on File: No Living Will: No Power of Order Department Supervisor: No Advance Directives Reason:: Declines as Mental Health Visit. Risk Factors Assessment Male: No : No Do You Have Access To A Gun?: No Health Problems: No Mental Health Diagnoses: Yes Substance Use Disorders: No Previous Attempt: No Family History of Suicide: No Previous Psychiatric Hospitalization: No Hopelessness: No Smoker: No Protective Factors Assessment Employed: No Stable Relationships: Yes Supportive Family: Yes Good Rapport with Provider: Yes Discharge Data Lab Results 05/03/21 05/03/21 05/03/21 14:50 14:50 14:50 WBC RBC Hgb Hct MCV MCH MCHC RDW Std Deviation RDW Coeff of Cruz Plt Count MPV Immature Gran % (Auto) Neut % (Auto) Lymph % (Auto) [place] % (Auto) Eos % (Auto) Baso % (Auto) Neut # (Auto) Lymph # (Auto) [place] # (Auto) Eos # (Auto) Baso # (Auto) Immature Gran # (Auto) Polychromasia Poikilocytosis Sodium Potassium Chloride Carbon Dioxide Anion Gap BUN Creatinine Est Cr Clr Drug Dosing Est GFR ( Amer) Est GFR (Non-Af Amer) BUN/Creatinine Ratio Glucose Fasting Glucose Calcium Total Bilirubin AST ALT Alkaline Phosphatase Total Protein Albumin Globulin Albumin/Globulin Ratio Triglycerides Cholesterol LDL Cholesterol, Calc VLDL Cholesterol, Calc HDL Cholesterol Cholesterol/HDL Ratio TSH Urine Color Yellow Urine Appearance Clear Urine pH 6.0 Ur Specific Waite 1.006 Urine Protein Negative Urine Glucose (UA) Negative Urine Ketones Negative Urine Blood Negative Urine Nitrite Negative Urine Bilirubin Negative Urine Urobilinogen Negative Ur Leukocyte Esterase Negative POC Ur Test NEG Salicylates Urine Opiates Screen Neg Ur Methadone, Qual Neg Acetaminophen Urine Barbiturates Neg Ur Phencyclidine (PCP) Neg U Amphetamin/Meth Scrn Neg MDMA (Ecstasy) Screen Neg U Benzodiazepines Scrn Neg Ur Cocaine Metabolite Neg U Marijuana (THC) Screen Neg Ethyl Alcohol mg/dL COVID-19 Eval Order SARS-CoV-2 (PCR) 05/03/21 05/03/21 05/03/21 15:09 15:09 15:16 WBC 6.27 RBC 4.36 Hgb 9.4 L Hct 30.7 L MCV 70.4 L MCH 21.6 L MCHC 30.6 L RDW Std Deviation 42.4 RDW Coeff of Cruz 16.4 H Plt Count 373 MPV 8.4 Immature Gran % (Auto) 0.3 Neut % (Auto) 54.0 Lymph % (Auto) 38.1 [place] % (Auto) 5.6 Eos % (Auto) 1.8 Baso % (Auto) 0.2 Neut # (Auto) 3.39 Lymph # (Auto) 2.39 [place] # (Auto) 0.35 Eos # (Auto) 0.11 Baso # (Auto) 0.01 Immature Gran # (Auto) 0.02 Polychromasia 1+ Poikilocytosis Present Sodium Potassium Chloride Carbon Dioxide Anion Gap BUN Creatinine Est Cr Clr Drug Dosing Est GFR ( Amer) Est GFR (Non-Af Amer) BUN/Creatinine Ratio Glucose Fasting Glucose Calcium Total Bilirubin AST ALT Alkaline Phosphatase Total Protein Albumin Globulin Albumin/Globulin Ratio Triglycerides Cholesterol LDL Cholesterol, Calc VLDL Cholesterol, Calc HDL Cholesterol Cholesterol/HDL Ratio TSH Urine Color Urine Appearance Urine pH Ur Specific Wa[place] Urine Protein Urine Glucose (UA) Urine Ketones Urine Blood Urine Nitrite Urine Bilirubin Urine Urobilinogen Ur Leukocyte Esterase POC Ur Test Salicylates Urine Opiates Screen Ur Methadone, Qual Acetaminophen Urine Barbiturates Ur Phencyclidine (PCP) U Amphetamin/Meth Scrn MDMA (Ecstasy) Screen U Benzodiazepines Scrn Ur Cocaine Metabolite U Marijuana (THC) Screen Ethyl Alcohol mg/dL COVID-19 Eval Order Covid19 at [facility] SARS-CoV-2 (PCR) NEGATIVE 05/03/21 05/03/21 05/03/21 15:16 15:16 15:16 WBC RBC Hgb Hct MCV MCH MCHC RDW Std Deviation RDW Coeff of Cruz Plt Count MPV Immature Gran % (Auto) Neut % (Auto) Lymph % (Auto) [place] % (Auto) Eos % (Auto) Baso % (Auto) Neut # (Auto) Lymph # (Auto) [place] # (Auto) Eos # (Auto) Baso # (Auto) Immature Gran # (Auto) Polychromasia Poikilocytosis Sodium 136 Potassium 4.1 Chloride 106 Carbon Dioxide 23 Anion Gap 8.0 BUN 7 Creatinine 0.66 Est Cr Clr Drug Dosing 121.8 Est GFR ( Amer) 143.3 Est GFR (Non-Af Amer) 123.6 BUN/Creatinine Ratio 10.8 Glucose 104 H Fasting Glucose Calcium 9.4 Total Bilirubin 0.2 AST 8 L ALT 16 Alkaline Phosphatase 53 Total Protein 7.8 Albumin 3.7 Globulin 4.1 H Albumin/Globulin Ratio 0.9 Triglycerides Cholesterol LDL Cholesterol, Calc VLDL Cholesterol, Calc HDL Cholesterol Cholesterol/HDL Ratio TSH 3.500 Urine Color Urine Appearance Urine pH Ur Specific [place] Urine Protein Urine Glucose (UA) Urine Ketones Urine Blood Urine Nitrite Urine Bilirubin Urine Urobilinogen Ur Leukocyte Esterase POC Ur Test Salicylates < 1.7 L Urine Opiates Screen Ur Methadone, Qual Acetaminophen < 2 L Urine Barbiturates Ur Phencyclidine (PCP) U Amphetamin/Meth Scrn MDMA (Ecstasy) Screen U Benzodiazepines Scrn Ur Cocaine Metabolite U Marijuana (THC) Screen Ethyl Alcohol mg/dL < 3.0 COVID-19 Eval Order SARS-CoV-2 (PCR) 05/05/21 08:17 WBC RBC Hgb Hct MCV MCH MCHC RDW Std Deviation RDW Coeff of Cruz Plt Count MPV Immature Gran % (Auto) Neut % (Auto) Lymph % (Auto) [place] % (Auto) Eos % (Auto) Baso % (Auto) Neut # (Auto) Lymph # (Auto) [place] # (Auto) Eos # (Auto) Baso # (Auto) Immature Gran # (Auto) Polychromasia Poikilocytosis Sodium Potassium Chloride Carbon Dioxide Anion Gap BUN Creatinine Est Cr Clr Drug Dosing Est GFR ( Amer) Est GFR (Non-Af Amer) BUN/Creatinine Ratio Glucose Fasting Glucose 88 Calcium Total Bilirubin AST ALT Alkaline Phosphatase Total Protein Albumin Globulin Albumin/Globulin Ratio Triglycerides 58 Cholesterol 177 LDL Cholesterol, Calc 98 VLDL Cholesterol, Calc 12 HDL Cholesterol 67 Cholesterol/HDL Ratio 3 TSH Urine Color Urine Appearance Urine pH Ur Specific [place] Urine Protein Urine Glucose (UA) Urine Ketones Urine Blood Urine Nitrite Urine Bilirubin Urine Urobilinogen Ur Leukocyte Esterase POC Ur Test Salicylates Urine Opiates Screen Ur Methadone, Qual Acetaminophen Urine Barbiturates Ur Phencyclidine (PCP) U Amphetamin/Meth Scrn MDMA (Ecstasy) Screen U Benzodiazepines Scrn Ur Cocaine Metabolite U Marijuana (THC) Screen Ethyl Alcohol mg/dL COVID-19 Eval Order SARS-CoV-2 (PCR) Hospital Course (1) Mood disorder: (2) Suicidal ideation: (3) Self-harming behavior: 05/07/21: No evidence of shakiness today, no signs of tremor, no signs of serotonin syndrome. Remains eager for discharge given improvement in mood and continues to feel safe and wants to return to school. 05/06/21: Continue mirtazapine and Effexor XR. Increased shakiness, tremor today could be due to effexor increase vs abilify. She consents to reducing abilify dose to 5 mg qd to see if this helps reduce symptoms. 05/05/21: EKG and QTc normal and reassuring. Continue with mirtazapine 15 mg qHS which she found very helpful for sleep. Increase Effexor XR from 150 mg qd to 225 mg qd (as one 150mg tablet and one 75 mg tablet) to address depression. Continue abilify 10 mg qd, fasting lipid panel and glucose all normal. 05/04/21: The patient was admitted to the [facility] ([facility] mental health unit) on q15 min checks (behavioral with suicide precautions) for safety. The patient will participate in group, recreational, and milieu therapies and will be offered additional individual and family sessions as clinically appropriate. -Fasting labs in the morning. -EKG to evaluate QTc given history of cardiac arrhythmia. Continuing BUTTER[employer]KER CONTINUOUS CHURN cardiac medications. -Continue BUTTERMAKER CONTINUOUS CHURN abilify 10mg qd -Continue BUTTERMAKER CONTINUOUS CHURN Effexor 75 mg BID, consider switching to Effexor XR 150 mg qd -Start mirtazapine 15 mg qHS for insomnia/appetite/depression Mental Health & Subst Abuse Tx Psychiatrist Name of Psychiatrist: Eric [facility]Portal Date of Appointment with Psychiatrist: 05/13/21 Time of Appointment with Psychiatrist: 10 a.m. Psychiatric Appointment Comment: Portal Therapist Name of Therapist: Eric Hickey Therapist's /Portal Therapy Appointment Comment: Portal Post Discharge Appointments Primary Care Physician Name Of Family Doctor: [facility] Primary Care Provider Appointment Comment: [facility] Other #1: Name of Aftercare Appointment: Student [facility] Advocacy - Audra Polanco Phone Number of Aftercare Appointment: [phone] Date of Aftercare Appointment: 05/11/21 Time of Aftercare Appointment: 2 PM Aftercare Appointment Comment: Meeting via Zoom: [email or web address] Contact Information Discharge Discharge Address: [address] [place] [address] Discharge Plan Discharge Items Patient Disposition: Home - Self-Care Reason For Visit: MDD Discharge Diagnosis: Major Depressive Disorder Activity: Resume your previous activity Non-emergency contact: Primary Care Provider, Psychiatrist and Therapist Call non-emergency contact if: you have any medication questions and your symptoms worsen Follow-up/Referrals: [facility] [Primary Care Provider] - Diet: Regular Addtl Attending Provider Instructions: SPECIAL CARE INSTRUCTIONS: 1. Follow through with your scheduled aftercare appointments. If unable to keep an appointment, please call to reschedule. 2. Take your medication only as prescribed. Medication should not be changed or stopped without the approval of your doctor. In the event of worsening symptoms or concerns about side effects, contact your doctor immediately. 3. Utilize new healthy coping skills, anger management skills, and stress management skills learned during your hospitalization. Journal feelings and process them with a support person. Identify stressors or situations that may result in relapse, deterioration or inappropriate behaviors and develop a plan to deal with those issues. 4. If your coping skills are ineffective and you are in crisis, contact your outpatient providers for direction. If unable to reach your providers, please call the [facility] CRISIS LINE AT , go to the [facility] walk-in center at [address] [place] [address] A, [place], or go to the closest Emergency Room. 5. Avoid alcohol and un-prescribed drugs. 6. You have been provided with the Mental Health Advance Directives Pamphlet for your review. 7. Your condition is stable for discharge to outpatient level of care, but recovery is an ongoing process. Ifthoughts to harm yourself or others return, follow the safety plan developed during your stay. Planning for a safe return home includes securing weapons. Our treatment team recommends weaponsbe removed from the home until your outpatient provider reassesses your progress. In rare cases where the items themselvescannot be removed, guns and ammunitionshould be secured separatelyand keys stored by a reliable personoutside of the home. If you were admitted on an involuntary commitment, the police or other legal authorities may be involved in this process. AFTERCARE APPOINTMENTS: * Please call your insurance company prior to your scheduled appointment to confirm your aftercare providers are covered. Take your insurance information to your appointments. WHO TO CALL AND WHEN: Medical Emergencies: For questions or emergencies related to your hospital stay, please contact the Inpatient Behavioral Health Unit at [phone]. A tutoring clinician is on-call 23/01 for the Behavioral Health Unit for emergencies At any time you feel your situation is an emergency, you may also call 911 immediately. Pending Studies at Discharge: No Stand-Alone Forms: My [facility] Medications and DC Order Prescriptions: New venlafaxine 75 mg Capsule,Extended Release 24hr 75 mg PO QAM 30 Days Qty: 30 RF: 0 venlafaxine 150 mg Capsule,Extended Release 24hr 150 mg PO QAM 30 Days Qty: 30 RF: 0 mirtazapine 15 mg Tablet 15 mg PO HS 30 Days Qty: 30 RF: 0 aripiprazole [Abilify] 5 mg Tablet 5 mg PO QAM 30 Days Qty: 30 RF: 0 Continued propranolol 10 mg Tablet 10 mg PO BID RF: 0 mexiletine 150 mg Capsule 150 mg PO DAILY RF: 0 Discontinued venlafaxine [Effexor] 75 mg Tablet 75 mg PO BID RF: 0 aripiprazole [Abilify] 10 mg Tablet 10 mg PO DAILY RF: 0 Discharge Orders: Discharge Order (Routine); Ordered 05/07/21 Ordered By: Angela Trinh Admission Data Admit Date/Time: 05/03/21 19:31 Attending Provider: Angela Trinh Admit Provider: Angela Trinh Primary Care Provider: [facility] Other Interventions: PSY Interdisciplinary Discharge Planning Last Done: 05/07/21 12:47 Coding Level of Care Code 28945 D/C day mgmt > 30 min Diagnoses Mood disorder F39 Suicidal ideation R45.851 Self-harming behavior Time Spent (min) 35
== END 2021-05-07 14:01 | disposition home or self-care (01) | DRG 881 ==
LOC: ED 14:38 → 3S 19:31